=== PATIENT | male | born 1980 | race Caucasian/White ===

== ENCOUNTER 2020-08-11 15:14 | Emergency (ER) | payer MEDICAID ==
[2020-08-11] MEDS ORDERED: BACITRACIN 1 GM OINT TP ONE (16:47)
[2020-08-11] MEDS ORDERED: ceFAZolin SODIUM 1 GM VIAL ONE (16:49)
[2020-08-11] MEDS ORDERED: SULFAMETHOXAZOLE/TRIMETHOPR DS 1 TABLET ONE (16:49)
[2020-08-11] MEDS ORDERED: IBUPROFEN 800 MG TABLET ONE (16:49)
== END 2020-08-11 16:56 | disposition home or self-care (01) ==
LOC: SED 15:14
DX: L03.113 Cellulitis of right upper limb (principal)
CPT/HCPCS: 96372; 99284; J0690; 99281

== ENCOUNTER 2023-07-21 09:23 | Emergency (ER) | payer MEDICAID ==
[~2023-07-21] VITALS: Ht 177.8 cm; Wt 93.0 kg
[2023-07-21 09:53] VITALS: BP_SYST 130; PULSE 67; RESP 16; TEMP 97.7; O2SAT 97
[2023-07-21] MEDS ORDERED: METH-776 PO (11:13)
[2023-07-21] MEDS ORDERED: AUG875 PO (11:13)
[2023-07-21 11:40] VITALS: BP_SYST 136; PULSE 86; RESP 18; TEMP 97.9; O2SAT 97
[2023-07-21] MEDS ORDERED: IBUPROFEN 600 MG TABLET PO ONE (11:45)
== END 2023-07-21 11:41 | disposition home or self-care (01) ==
LOC: SED 09:23
DX: M70.41 Prepatellar bursitis, right knee (principal); Y93.64 Activity, baseball
CPT/HCPCS: 73560-TC; 99283